=== PATIENT | male | born 2000 | race Caucasian/White ===

== ENCOUNTER → 2023-06-01 | Emergency (ER) | payer BC, SELFPAY ==
[~2023-06-01] MED LIST: AMOX/K CLAV 875 MG TAB ONE; TDAP (DIPHTH,PERTUSS(ACELL),TET VAC) 0.5 ML VIAL IMVAC ONE
--- OUTSIDE RECORDS SUMMARY | 2023-06-01 19:25 | XMS REPORT | Continuity of Care Document ---
Author Name Unknown Address [address] [facility] [address] [id number] [facility] thconnect Address [address] [facility] [address] [place] [address] Care Team Providers Care Special Procedure Tech Name Role Phone Lab, Adc Fam Pob I Attending Clinician Unavailab Freddy Llamas Attending Clinician [phone] FREDDY YBARRA Attending Clinician Unavailable Gabby Cabrera Attending Clinician [phone] GABBY LOZANO Attending Clinician Unavailable Doctor Unassigned, [place] Attending Clinician U navailable Payers Payer Name Policy Type Policy Number Effective Date Expirati on Date Source Allergies, Adverse Reactions, Alerts Allergy Name Allergy Type Status Severity Reaction(s) Onset Date Inactive Date Treating Clinician Comments Source NO KNOWN ALLERGIE S Drug Class Active [facility] Social History Social Habit Start Date Stop Date Quantity Comments Source Sex Assigned At [facility] Smoking Status Start Date Stop Date Source Unknown if ever smoked [facility] Encounters Start Date/Time End Date/Time Encounter Type Admission Type Attending Clinicians Care Facility Care Department Encounter ID Source 2020-05-28 17:15:53 2020-05-28 17:35:53 Laboratory Only Lab, Adc Fam Pob I Freddy Ybarra [facility] Office [address] [id number] [facility] 2020-05-28 17:00:00 2020-05-28 17:00:00 Outpatient R FREDDY YBARRA [facility] [id number] [facility] 2020-02-13 14:39:13 2020-02-13 14:39:29 Laboratory Only Lab, [facility] One [id number] [facility] 2020-02-13 14:20:00 2020-02-13 14:20:00 Outpatient [facility] [id number] [facility] 2020-02-13 14:20:00 2020-02-13 14:20:00 Outpatient [facility] [id number] [facility] 2020-02-13 00:00:00 2020-02-13 00:00:00 Letter (Out) Doctor Unassigned, [facility] [id number] [facility]
--- NOTE | 2023-06-01 20:44 | EDPHYS ---
Physician Documentation [facility] Name: Luis Reilly Age: 22 yrs Sex: Male : 2000 Arrival Date: 06/01/2023 Time: 19:21 Bed 10 Private MD: ED Physician Dudley Noble HPI: 06/01 23:36 This 22 yrs old Male presents to ER via Ambulatory with complaints of Cat Bite. kb 23:36 Pt is a 22 year old male who presents after trying to break up 2 cats that were kb fighting and getting scratched. Pt has scratches to bilateral arms, left thigh and scalp. . Historical: - Allergies: 19:34 No Known Allergies; as6 - PMHx: 19:34 ADD/ADHD; as6 - PSHx: 19:34 None; as6 - Immunization history:: Last tetanus immunization: unknown. - Social history:: Smoking status: Patient denies any tobacco usage or history of. ROS: 23:34 Constitutional: Negative for fever, chills, and weight loss, kb 23:34 Skin: Positive for laceration(s), of the scalp, right arm, left arm and left leg, 23:34 All other systems are negative, Exam: 23:34 Constitutional: This is a well developed, well nourished patient who is awake, alert, kb and in no acute distress. Head/Face: Normocephalic, atraumatic. ENT: Moist Mucous membranes Cardiovascular: Regular rate Respiratory: Respirations even and unlabored. No increased work of breathing. Talking in full sentences MS/ Extremity: Pulses equal, no cyanosis. Neurovascular intact. Full, normal range of motion. Neuro: Awake and alert, GCS 15, oriented to person, place, time, and situation. Moves all extremities. Normal gait. 23:34 Skin: injury, abrasion(s), moderate sized abrasion noted, of the left leg and left arm and right arm, laceration(s), the wound is approximately 5 cm(s), of the scalp, the second wound is approximately 1 cm(s), of the scalp, that can be described as clean, no foreign body, linear, without bleeding, Vital Signs: 19:34 BP 128 / 87; Pulse 88; Resp 18 S; Temp 97.7(TE); Pulse Ox 97% on R/A; Weight 70.31 kg as6 (R); Height 6 ft. 0 in. (R); Pain 3/10; 19:34 Body Mass Index 21.02 (70.31 kg, 182.88 cm) as6 19:34 Pain Scale: Adult as6 Laceration: 20:41 Wound Repair of 3cm ( 1.2in ) subcutaneous laceration to right side of the back of kb head. Linear shaped.. Distal neuro/vascular/tendon intact. Wound prep: Extensive cleansing with hibiclenz by nurse, Wound irrigation. Skin closed with 4 1-0 [place] using staple gun. Patient tolerated . 20:41 Wound Repair of 1cm ( 0.4in ) subcutaneous laceration to scalp. Linear shaped.. Distal kb neuro/vascular/tendon intact. Wound prep: Extensive cleansing with hibiclenz by nurse, Wound irrigation. Skin closed with 1 1-0 [place] using staple gun. Patient tolerated well. MDM: 19:33 Patient medically screened. kb 23:35 Differential diagnosis: superficial laceration, abrasion. Data reviewed: vital signs, kb nurses notes. Counseling: I had a detailed discussion with the patient and/or guardian regarding the historical points, exam findings, and any diagnostic results supporting the discharge/admit diagnosis, the need for outpatient follow up, a family practitioner, to return to the emergency department if symptoms worsen or persist or if there are any questions or concerns that arise at home. 06/01 19:40 Order name: Wound Care: clean wounds, stapler to bedside for scalp laceration; Complete kb Time: 20:25 Administered Medications: 20:17 Drug: Boostrix Tdap IM 0.5 ml IM once; as a single dose Route: IM; Site: right deltoid; cm10 20:17 Drug: Amoxicillin-Clavulanate PO 875 mg PO once Route: PO; cm10 Disposition Summary: 06/01/23 20:44 Discharge Ordered Notes: Location: Home kb Condition: Stable kb Diagnosis - Laceration without foreign body of scalp kb - Abrasion of left forearm kb - Abrasion of right forearm kb - abrasion of left thigh kb - Scratched by cat kb Followup: kb - With: Emergency Department - When: As needed - Reason: Worsening of condition Followup: kb - With: Private Physician - When: 2 - 3 days - Reason: Recheck today's complaints, Continuance of care, Re-evaluation by your physician Discharge Instructions: - Discharge Summary Sheet kb - Laceration Care, Adult, [id number] kb - Abrasion, [id number] kb Forms: - Medication Reconciliation Form kb - Thank You Letter kb - Antibiotic Education kb - Prescription Opioid Use kb - Patient Portal Instructions kb - Leadership Thank You Letter kb Prescriptions: - Augmentin 875-125 mg Oral Tablet - take 1 tablet ORAL route every 12 hours for 10 days; 20 tablet; Refills: 0, kb Product Selection Permitted Signatures: Areli Melendez, ALISSAC Juan Cox RN RN as6 Nina Styles RN RN cm10
--- NOTE | 2023-06-01 20:44 | ER ---
Nurse's Notes [facility] Name: Luis Reilly Age: 22 yrs Sex: Male : 2000 Arrival Date: 06/01/2023 Time: 19:21 Bed 10 Private MD: Diagnosis: Laceration without foreign body of scalp;Abrasion of left forearm;Abrasion of right forearm;abrasion of left thigh;Scratched by cat Presentation: 06/01 19:34 Chief complaint: Patient states: tried to break up a fight between his cat and a stray as6 cat. pt has scattered scratches and bites to extremities. Coronavirus screen: At this time, the client does not indicate any symptoms associated with coronavirus-19. Ebola Screen: No symptoms or risks identified at this time. Initial Sepsis Screen: Does the patient meet any 2 criteria? No. Patient's initial sepsis screen is negative. Does the patient have a suspected source of infection? No. Patient's initial sepsis screen is negative. Risk Assessment: Do you want to hurt yourself or someone else? Patient reports no desire to harm self or others. Onset of symptoms was June 01, 2023. 19:34 Acuity: NASRIN 4 as6 19:34 Method Of Arrival: Ambulatory as6 Triage Assessment: 20:59 Bite description: bite sustained to left leg and right leg and left arm and right arm cm10 and scalp by a cat, animal information: vaccination(s) is unknown. General: Appears in no apparent distress. comfortable, Behavior is calm, cooperative. Historical: - Allergies: 19:34 No Known Allergies; as6 - PMHx: 19:34 ADD/ADHD; as6 - PSHx: 19:34 None; as6 - Immunization history:: Last tetanus immunization: unknown. - Social history:: Smoking status: Patient denies any tobacco usage or history of. Screenin:28 [facility] ED Fall Risk Assessment (Adult) History of falling in the last 3 months, cm10 including since admission No falls in past 3 months (0 pts) Confusion or Disorientation No (0 pts) Intoxicated or Sedated No (0 pts) Impaired Gait No (0 pts) Mobility Assist Device Used No (0 pt) Altered Elimination No (0 pt) Score/Fall Risk Level 0 - 2 = Low Risk Oriented to surroundings, Maintained a safe environment, Hourly rounding (assess needs \T\ fall precautionary measures) done. Abuse screen: Denies threats or abuse. Denies injuries from another. Nutritional screening: No deficits noted. Tuberculosis screening: No symptoms or risk factors identified. Assessment: 20:26 General: Appears in no apparent distress. comfortable, Behavior is calm, cooperative. cm10 Pain: Complains of pain in scalp. Neuro: No deficits noted. Level of Consciousness is awake, alert, obeys commands, Oriented to person, place, time, situation. Respiratory: No deficits noted. Airway is patent Respiratory effort is even, unlabored, Respiratory pattern is regular, symmetrical. Derm: Skin is intact, Skin is pink, warm \T\ dry. Wound noted right arm, left arm, right leg and left leg and scalp Wound is Pt has 2 lacerations to scalp from cat scratching him, bleeding controlled. Pt also noted to have superficial scratches along bilateral arms and legs. Musculoskeletal: No deficits noted. Range of motion: intact in all extremities. Vital Signs: 19:34 BP 128 / 87; Pulse 88; Resp 18 S; Temp 97.7(TE); Pulse Ox 97% on R/A; Weight 70.31 kg as6 (R); Height 6 ft. 0 in. (R); Pain 3/10; 19:34 Body Mass Index 21.02 (70.31 kg, 182.88 cm) as6 19:34 Pain Scale: Adult as6 ED Course: 19:26 Patient arrived in ED. gm2 19:33 [facility]endez [facility]C [facility] kb 19:33 Dudley Noble MD is Attending Physician. kb 19:33 Arm band placed on. as6 19:36 Triage completed. as6 20:26 No provider procedures requiring assistance completed. Patient did not have IV access cm10 during this emergency room visit. Wound care: to laceration located on scalp was cleaned with Hibiclens, Patient tolerated well. 20:28 Patient has correct armband on for positive identification. Bed in low position. Call cm10 light in reach. Side rails up X 1. Provided Education on: ER process and procedures. . Administered Medications: 20:17 Drug: Boostrix Tdap IM 0.5 ml IM once; as a single dose Route: IM; Site: right deltoid; cm10 20:17 Drug: Amoxicillin-Clavulanate PO 875 mg PO once Route: PO; cm10 Medication: 20:17 Vaccine Information Statement (VIS) provided today. Questions and/or concerns cm10 addressed. VIS edition date: November 08, 2020. Outcome: 20:44 Discharge ordered by . kb 20:59 Discharged to home ambulatory, cm10 20:59 Condition: good 20:59 Discharge instructions given to patient, Instructed on discharge instructions, follow up and referral plans. medication usage, wound care, Demonstrated understanding of instructions, follow-up care, medications, wound care, Prescriptions given X 1, 21:00 Patient left the ED. cm10 Signatures: Areli Melendez, MACHINE LEARNING INTERN-C MACHINE LEARNING INTERN-Juan Hill RN RN as6 Nina Styles RN RN cm10 Cristy Mckeon 2
[2023-06-01 21:13] VITALS: BP 128/87; TEMP 97.7; O2SAT 97
== END ==
LOC: ER 19:21
PROC: 0HQ0XZZ Repair Scalp Skin, External Approach (ICD-10-PCS; principal; 2023-06-01)
DX: S01.01XA Laceration without foreign body of scalp, initial encounter (principal); S50.812A Abrasion of left forearm, initial encounter; S50.811A Abrasion of right forearm, initial encounter; S70.312A Abrasion, left thigh, initial encounter; W55.03XA Scratched by cat, initial encounter

== ENCOUNTER → 2023-06-11 | Emergency (ER) | payer OTHER ==
--- OUTSIDE RECORDS SUMMARY | 2023-06-11 11:04 | XMS REPORT | Continuity of Care Document ---
Author Name Unknown Address [address] [facility] [address] [place] [id number] [facility] thconnect Address [address] [facility] [address] [place] [address] Care Team Providers Care [employer] Teacher Name Role Phone Lab, Adc Fam Pob I Attending Clinician Unavailab Freddy Llamas Attending Clinician [phone] FREDDY YBARRA Attending Clinician Unavailable Gabby Cabrera Attending Clinician [phone] GABBY LOZANO Attending Clinician Unavailable Doctor Unassigned, [place] Attending Clinician U navailable Payers Payer Name Policy Type Policy Number Effective Date Expirati on Date Source Allergies, Adverse Reactions, Alerts Allergy Name Allergy Type Status Severity Reaction(s) Onset Date Inactive Date Treating Clinician Comments Source NO KNOWN ALLERGIE S Drug Class Active [facility] Social History Social Habit Start Date Stop Date Quantity Comments Source Sex Assigned At [facility] Smoking Status Start Date Stop Date Source Unknown if ever [facility] Encounters Start Date/Time End Date/Time Encounter Type Admission Type Attending Clinicians Care Facility Care Department Encounter ID Source 2020-05-28 17:15:53 2020-05-28 17:35:53 Laboratory Only Lab, Adc Fam Pob I Freddy Ybarra [facility] [address] [id number] [facility] 2020-05-28 17:00:00 2020-05-28 17:00:00 Outpatient R FREDDY YBARRA [facility] [id number] [facility] 2020-02-13 14:39:13 2020-02-13 14:39:29 Laboratory Only Lab, [facility] One [id number] [facility] 2020-02-13 14:20:00 2020-02-13 14:20:00 Outpatient [facility] [id number] [facility] 2020-02-13 14:20:00 2020-02-13 14:20:00 Outpatient [facility] [id number] [facility] 2020-02-13 00:00:00 2020-02-13 00:00:00 Letter (Out) Doctor Unassigned, [place] [facility] [id number] [facility]
--- NOTE | 2023-06-11 11:17 | EDPHYS ---
Physician Documentation [facility] Name: Luis Reilly Age: 22 yrs Sex: Male : 2000 Arrival Date: 06/11/2023 Time: 11:02 Bed IW2 Private MD: ED Physician Mic Freed HPI: 06/10 11:20 This 22 yrs old Male presents to ER via Ambulatory with complaints of Staple Removal. ms3 11:20 22-year-old male with past medical history of ADD/ADHD presents to the emergency ms3 department for suture removal. Patient states he had 5 brigid placed in his scalp 10 days prior to arrival. Patient denies pain, drainage, surrounding erythema. Historical: - Allergies: 11:08 No Known Allergies; aa5 - PMHx: 11:08 ADD/ADHD; aa5 - Immunization history:: Adult Immunizations unknown. - Social history:: Smoking status: Patient denies any tobacco usage or history of. ROS: 11:20 Constitutional: Negative for fever, and chills. Neck: Negative for injury, pain, and ms3 swelling, Cardiovascular: Negative for chest pain, and palpitations. Respiratory: Negative for shortness of breath, cough, wheezing, and pleuritic chest pain, Abdomen/GI: Negative for abdominal pain, nausea, vomiting, diarrhea, and constipation, 11:20 Skin: Positive for 5 brigid in scalp, Exam: 11:20 Constitutional: This is a well developed, well nourished patient who is awake, alert, ms3 and in no acute distress. Head/Face: Normocephalic, atraumatic. Cardiovascular: Regular rate and rhythm with a normal S1 and S2. No gallops, murmurs, or rubs. Normal PMI, no JVD. No pulse deficits. Respiratory: Lungs have equal breath sounds bilaterally, clear to auscultation and percussion. No rales, rhonchi or wheezes noted. No increased work of breathing, no retractions or nasal flaring. Abdomen/GI: Soft, non-tender, with normal bowel sounds. No distension or tympany. No guarding or rebound. No evidence of tenderness throughout. 11:20 Skin: 5 brigid present in scalp. Laceration without surrounding erythema or drainage. Wound appears healed. Vital Signs: 11:08 BP 126 / 80; Pulse 73; Resp 18 S; Temp 98(TE); Pulse Ox 100% on R/A; aa5 MDM: 11:10 Patient medically screened. ms3 11:20 Data reviewed: vital signs, and as a result, I will discharge patient. Counseling: I ms3 had a detailed discussion with the patient and/or guardian regarding the historical points, exam findings, and any diagnostic results supporting the discharge/admit diagnosis, the need for outpatient follow up, to return to the emergency department if symptoms worsen or persist or if there are any questions or concerns that arise at home. Special discussion: I discussed with the patient/guardian in detail that at this point there is no indication for admission to the hospital. It is understood, however, that if the symptoms persist or worsen the patient needs to return immediately for re-evaluation. ED course: Discussed suture removal with the patient. Patient to follow-up with primary care physician as needed. All questions were answered. Return precautions discussed include worsening symptoms, or any other concerns. Administered Medications: No medications were administered Disposition Summary: 06/11/23 11:16 Discharge Ordered Notes: Location: Home ms3 Condition: Stable ms3 Diagnosis - Encounter for removal of sutures ms3 Followup: ms3 - With: Stas Noble DO - When: 2 - 3 days - Reason: Recheck today's complaints Discharge Instructions: - Discharge Summary Sheet ms3 - Suture Removal, Care After ms3 Forms: - Medication Reconciliation Form ms3 - Thank You Letter ms3 - Antibiotic Education ms3 - Prescription Opioid Use ms3 - Patient Portal Instructions ms3 - Leadership Thank You Letter ms3 Signatures: Rosangela Leija, RN RN aa5 Mic Freed DO DO ms3
--- NOTE | 2023-06-11 11:17 | ER ---
Nurse's Notes [facility] Name: Luis Reilly Age: 22 yrs Sex: Male : 2000 Arrival Date: 06/11/2023 Time: 11:02 Bed IW2 Private MD: Diagnosis: Encounter for removal of sutures Presentation: 06/10 11:08 Chief complaint: Patient states: need for staple removal from head, placed 10 days ago aa5 per pt. Coronavirus screen: At this time, the client does not indicate any symptoms associated with coronavirus-19. Ebola Screen: Patient denies travel to an Ebola-affected area in the 21 days before illness onset. Initial Sepsis Screen: Does the patient meet any 2 criteria? No. Patient's initial sepsis screen is negative. Does the patient have a suspected source of infection? No. Patient's initial sepsis screen is negative. Risk Assessment: Do you want to hurt yourself or someone else? Patient reports no desire to harm self or others. Onset of symptoms was June 11, 2023. 11:08 Acuity: NASRIN 4 aa5 11:08 Method Of Arrival: Ambulatory aa5 Triage Assessment: 11:10 General: Appears comfortable, Behavior is calm, cooperative. Pain: Denies pain. EENT: aa5 No signs and/or symptoms were reported regarding the EENT system. Neuro: Level of Consciousness is awake, alert, obeys commands, Oriented to person, place, time, situation. Cardiovascular: Patient's skin is warm and dry. Respiratory: Airway is patent Respiratory effort is even, unlabored, Respiratory pattern is regular, symmetrical. GI: No signs and/or symptoms were reported involving the gastrointestinal system. : No signs and/or symptoms were reported regarding the genitourinary system. Derm: Skin is pink, warm \T\ dry. 5 brigid noted to top of head. Musculoskeletal: Range of motion: intact in all extremities. Historical: - Allergies: 11: No Known Allergies; aa5 - PMHx: 11: ADD/ADHD; aa5 - Immunization history:: Adult Immunizations unknown. - Social history:: Smoking status: Patient denies any tobacco usage or history of. Screenin:10 [facility] ED Fall Risk Assessment (Adult) History of falling in the last 3 months, aa5 including since admission No falls in past 3 months (0 pts) Confusion or Disorientation No (0 pts) Intoxicated or Sedated No (0 pts) Impaired Gait No (0 pts) Mobility Assist Device Used No (0 pt) Altered Elimination No (0 pt) Score/Fall Risk Level 0 - 2 = Low Risk Oriented to surroundings, Maintained a safe environment, Educated pt \T\ family on fall prevention, incl call for assistance when getting out of bed. Abuse screen: Denies threats or abuse. Nutritional screening: No deficits noted. Tuberculosis screening: No symptoms or risk factors identified. Assessment: 11:10 Reassessment: See triage assessment. aa5 Vital Signs: 11:08 BP 126 / 80; Pulse 73; Resp 18 S; Temp 98(TE); Pulse Ox 100% on R/A; aa5 ED Course: 11:02 Patient arrived in ED. rg4 11:03 Mic Freed DO is Attending Physician. ms3 11:07 Arm band placed on. aa5 11:07 Patient has correct armband on for positive identification. aa5 11:08 Triage completed. aa5 11:14 Rosangela Leija, LINDA is Primary Nurse. aa5 11:14 Removal of Removed brigid from top of head. 5 brigid removed. [place] site is well aa5 healed Patient tolerated well. 11:16 Stas Noble DO is Referral Physician. ms3 11:23 No provider procedures requiring assistance completed. Patient did not have IV access aa5 during this emergency room visit. Administered Medications: No medications were administered Medication: 11:08 VIS not applicable for this client. aa5 Outcome: 11:16 Discharge ordered by MD. ms3 11:16 Discharged to home ambulatory, aa5 11:16 Condition: stable 11:16 Discharge instructions given to patient, Instructed on discharge instructions, follow up and referral plans. Demonstrated understanding of instructions, follow-up care, 11:23 Patient left the ED. aa5 Signatures: Rosangela Leija RN RN aa5 Joycelyn Hernandez rg Mic Freed DO DO ms3
[2023-06-11 11:32] VITALS: BP 126/80; TEMP 98; O2SAT 100
== END ==
LOC: ER 11:02
DX: Z48.02 Encounter for removal of sutures (principal)
CPT/HCPCS: 99283